=== PATIENT | female | born 1980 | race African-American/Black ===

== ENCOUNTER 2023-09-30 09:45 | Outpatient (AMB) | payer OTHER, SELFPAY ==
[2023-09-30 10:01] VITALS: BP 129/79; PULSE 77; RESP 16; O2SAT 97; BMI 34.2
--- NOTE | 2023-09-30 10:01 | MHC.OFFVIS ---
Intake Vital Signs 09/30/23 10:01 Height 5 ft 1 in Weight 181 lb 4 oz BMI 34.2 BP 129/79 Blood Pressure Location Lt brachial Position Sitting Respiration 16 Pulse 77 Pulse Source Pulse Oximeter Pulse Oximetry (%) 97 Oxygen Delivery Method Room Air Intake Visit Reasons: Cervical Radiculopathy//Confirmed Allergies No Known Allergies Allergy (Mild, Verified 09/30/23 10:01) NOT APPLICABLE HPI HPI Comments History of Present Illness Details Flaquita is a very pleasant 43-year-old female who presents to the office today for evaluation management of her chronic neck pain. Patient reports that she has been suffering with this pain since 2016. She relates it to an incident where she was camping and slept wrong, she woke up with a stiff neck and has been suffering since. She previously underwent treatment at [facility] where she had multiple rounds of trigger point injections and cervical epidural steroid injections that provided a couple months worth of relief. The last time she was seen here was January of 2023, they no longer take her insurance. Patient's last MRI was several years ago. She has tried massage which only made it worse. She has gone to physical therapy multiple times, without relief she continues to do home exercise program without relief of her pain. Patient has tried Tylenol, anti-inflammatory medications and gabapentin all without relief. Patient does report some numbness to her thumb and index finger. She states numbness tingling from her right axilla down to her palm. She has been told in the past that she has carpal tunnel. She had an EMG a couple years ago is not sure what the results were. She reports that range of motion improved after previous injections. In terms of muscle damage condition is described as aching, shooting, numb, throbbing, shocking, stabbing, sharp, tingling, pins and needles. Pain is constant, worse in the mornings evenings and at night. Rated today as 8/10. Pain is negatively impacting patient's enjoyment life, general activity, normal work, recreational activities and sleep. Review of Systems Const All systems reviewed & are unremarkable except as noted in HPI and below Physical Exam Vital Signs: Last Vital Signs Pulse 77 09/30/23 10:01 Resp 16 09/30/23 10:01 BP 129/79 09/30/23 10:01 Pulse Ox 97 09/30/23 10:01 Oxygen Delivery Method Room Air 09/30/23 10:01 BMI result Body Mass Index 34.2 General: awake, alert, oriented. Answers questions appropriately. Fully engaged in examination. Skin: warm, dry, intact HEENT: Normocephalic. Hearing intact. Cardiac: External chest normal in appearance. Respiratory: No cough, audible wheezing or stridor. Abdomen: without gross distension. MS: No obvious swelling or deformities. Tenderness bilateral upper middle trapezius Cervical range of motion intact Spurling positive Neurological: Oriented to person, place, time and situation. Thought process intact. No gait abnormalities appreciated. Psychiatric: Appropriate mood and affect. Good judgment and insight. Assessment & Plan Assessment & Plan (1) Cervical radiculopathy: Code(s): M54.12 - Radiculopathy, cervical region (2) Neuropathy: Comment: MARGIE Code(s): G62.9 - Polyneuropathy, unspecified (3) Migraines: Code(s): G43.909 - Migraine, unspecified, not intractable, without status migrainosus (4) Trapezius muscle strain: Code(s): S46.819A - Strain of other muscles, fascia and tendons at shoulder and upper arm level, unspecified arm, initial encounter (5) Myofascial neck pain: Code(s): M54.2 - Cervicalgia Plan Flaquita is a very pleasant 43-year-old female who presented to the office today for evaluation management of her chronic neck pain. History, physical exam and provocative testing consistent with myofascial back pain, cervical spondylosis, cervical radiculopathy, neuropathy and trapezius muscle strain. MRI cervical spine without contrast ordered for further evaluation. EMG ordered for further evaluation of the right hand neuropathy. Order placed for neurology to evaluate and treat her migraines. Patient has requested referral to [facility] in [place] due to proximity to her home. Baclofen 5 mg p.o. t.i.d., patient instructed on cautions for use. TENS unit ordered, instructional pamphlet provided for use. All questions and concerns were answered during the visit. Patient agrees with plan. Follow-up after MRI/EMG, sooner if needed. Orders: Orders MR cervical spine wo con Today M54.12 - Radiculopathy, cervical region NE electromyogram (EMG) Today G62.9 - Polyneuropathy, unspecified, M54.12 - Radiculopathy, cervical region Referrals Neurology Referral G43.909 - Migraine, unspecified, not intractable, without status migrainosus Medications: New baclofen 5 mg PO TID PRN 60 tabs 1RF muscle spasm Coding Level of Care Code New Pt Level 4 (51227) Diagnoses Cervical radiculopathy M54.12 Neuropathy G62.9 Migraines G43.909 Trapezius muscle strain S46.819A Myofascial neck pain M54.2
== END 2023-09-30 11:13 | disposition home or self-care (01) ==
PROVIDERS: PCP Nurse Practitioner; Visit Provider Registered Nurse Emergency
DX: M54.12 Radiculopathy, cervical region (principal); G62.9 Polyneuropathy, unspecified; G43.909 Migraine, unspecified, not intractable, without status migrainosus; S46.819A Strain of other muscles, fascia and tendons at shoulder and upper arm level, unspecified arm, initial encounter; M54.2 Cervicalgia
CPT/HCPCS: 99204

== ENCOUNTER → 2023-09-30 09:45 | Outpatient (BNVA) | payer OTHER, SELFPAY | PROVIDERS: PCP Nurse Practitioner; Visit Provider Registered Nurse Emergency | DX: M54.12 Radiculopathy, cervical region (principal); M54.2 Cervicalgia; G62.9 Polyneuropathy, unspecified; G43.909 Migraine, unspecified, not intractable, without status migrainosus; S46.819A Strain of other muscles, fascia and tendons at shoulder and upper arm level, unspecified arm, initial encounter | CPT/HCPCS: 99202 ==

== ENCOUNTER 2023-11-25 10:19 | Outpatient (REF) | payer OTHER, SELFPAY ==
--- NOTE | 2023-11-25 10:24 | EMG_ITS ---
Right median and ulnar motor and sensory studies were performed. Right radial and median and lateral antecubital brachial sensory studies were performed and needle examination was performed. IMPRESSION: Mild to moderate right median neuropathy across carpal tunnel. MD DEMETRIA Fontanez/LAUREEN / [id number]
== END 2023-11-25 10:20 | disposition home or self-care (01) ==
LOC: HO.NEURO 10:19
PROVIDERS: PCP Nurse Practitioner; Visit Provider Registered Nurse Emergency
DX: M54.12 Radiculopathy, cervical region (principal); G62.9 Polyneuropathy, unspecified
CPT/HCPCS: 95886; 95910